=== PATIENT | female | born 1985 | race Hispanic/Latino ===

== ENCOUNTER 2019-07-07 09:05 | Outpatient (CLI) | payer OTHER ==
--- NOTE | 2019-07-07 10:23 | ULT ---
GALLBLADDER ULTRASOUND: HISTORY: Right upper quadrant pain. FINDINGS: The liver, pancreas and right kidney appear normal. There is a 2.9 cm shadowing calculus in the gallb ladder without gallbladder wall thickening or pericholecystic fluid. The common duct measures 5 mm in diameter. No free fluid is seen in the [place] pouch. IMPRESSION: Cholelithiasis. POS: [facility]
== END 2019-07-07 09:06 | disposition home or self-care (01) ==
LOC: BICULT 09:05
PROVIDERS: ATTEND Family Medicine
DX: R10.11 Right upper quadrant pain (principal); R11.10 Vomiting, unspecified; R14.2 Eructation; R14.3 Flatulence; K80.20 Calculus of gallbladder without cholecystitis without obstruction
CPT/HCPCS: 76705

== ENCOUNTER 2019-12-08 08:21 | Day surgery (SDC) | payer OTHER ==
--- NOTE | 2019-10-05 11:41 | HP ---
HISTORY OF PRESENT ILLNESS: Sharmin Varela is a 34-year-old female from [place], [place], incarcerated three years, expected to release January 2020, had symptomatic cholelithiasis. Ultrasound gallbladder 07/07/2019, gallstones, normal bile duct caliber. Labs not provided. ALLERGIES: NONE. SOCIAL HISTORY: Tobacco, none. Previous history of meth use none since incarcerated three years ago. Alcohol, none. MEDICATIONS: None routinely. PAST SURGICAL HISTORY: Tubal ligation, C-sections five. MEDICATIONS: control. REVIEW OF SYSTEMS: Ten-point noncontributory. FAMILY HISTORY: Noncontributory. PHYSICAL EXAMINATION: VITAL SIGNS: Blood pressure 102/70, heart rate 80, temperature 97.6 degrees, 164 pounds, 4 feet 11 inches. HEAD, EARS, EYES, NOSE AND THROAT: Unremarkable. LUNGS: Clear to auscultation. CARDIAC: Regular rate and rhythm without murmur or gallop. ABDOMEN: Soft, nontender, mild tenderness in right upper quadrant. EXTREMITIES: Unremarkable. No ankle edema. ASSESSMENT AND PLAN: Symptomatic cholelithiasis, chronic cholecystitis. We would recommend laparoscopic cholecystectomy, prevent complications of acute cholecystitis, choledocholithiasis and pancreatitis. Risks of infection, bleeding, visceral and biliary injury explained. Plan this is an outpatient. She will need follow up in the office 2 weeks postoperatively. Diet and activity as tolerated postoperatively. We will schedule this whenever approval from the intermediate is given. Job ID: [id number]
[2019-12-07 12:32] VITALS: BMI 33.1
[2019-12-08] MEDS ORDERED: Acetaminophen 500 MG TAB ONE (08:40)
[2019-12-08] MEDS ORDERED: Ketorolac Tromethamine 30 MG/ML VIAL ONE (08:40)
[2019-12-08] MEDS ORDERED: Midazolam HCl 2 mg/2 ml Vial ONE (09:22)
[2019-12-08] MEDS ORDERED: Bupivacaine PF 0.5% 30 ML VIAL ONE (09:32)
[2019-12-08] MEDS ORDERED: Lidocaine 1% w/Epinephrine 1:100K 20 ML VIAL ONE (09:32)
[2019-12-08] MEDS ORDERED: Famotidine/PF 20 mg/2ml Vial ONE (09:33)
[2019-12-08] MEDS ORDERED: Fentanyl 100 MCG/2 ML VIAL ONE ×3 (09:33→11:09)
[2019-12-08] MEDS ORDERED: Meperidine HCl/PF 25 MG/ML VIAL ONE (09:34)
[2019-12-08] MEDS ORDERED: Metoclopramide HCl 10 MG/2 ML VIAL ONE (11:08)
[2019-12-08] MEDS ORDERED: Glycopyrrolate 0.2 MG/ML 5 ML SYRINGE ONE (11:08)
[2019-12-08] MEDS ORDERED: PROPOFOL 200 MG/20 ML VIAL ONE (11:08)
[2019-12-08] MEDS ORDERED: Dexamethasone 20 MG/5 ML VIAL ONE (11:08)
[2019-12-08] MEDS ORDERED: Lidocaine 1% PF 5 ML VIAL ONE (11:08)
[2019-12-08] MEDS ORDERED: Ondansetron PF 4 MG/2 ML Vial ONE (11:08)
[2019-12-08] MEDS ORDERED: Rocuronium Bromide 10 MG/ML (10ML VIAL) ONE (11:08)
[2019-12-08] MEDS ORDERED: HYDROcodone/Acetaminophen 5/325 mg Tablet ONE (11:17)
--- NOTE | 2019-12-08 13:23 | OP ---
DATE OF PROCEDURE: 12/08/2019 PREOPERATIVE DIAGNOSES: Chronic cholecystitis and cholelithiasis. POSTOPERATIVE DIAGNOSES: Chronic cholecystitis and cholelithiasis. PROCEDURE PERFORMED: Laparoscopic video cholecystectomy, very large stone removed. ANESTHESIA: General, local 0.5% Marcaine 30 mL and 1% Xylocaine with epinephrine 20 mL. DESCRIPTION OF PROCEDURE: The patient was taken to the operating room, where under general anesthesia, abdomen was prepared with ChloraPrep and draped in routine fashion. Local anesthetic was infiltrated in the skin and subcutaneous tissue about each port site. An infraumbilical incision was made, and pneumoperitoneum to 15 mmHg was obtained with a Veress needle, replaced with a 5 port, where laparoscope was inserted. Right subxiphoid incision was made, and an 11 port was placed. Right subcostal incisions were made at midclavicular and anterior axillary line, and 5 ports were placed. There were some adhesions in the right upper quadrant. I did not take these down. I was able to work around them. Fundus was grasped and reflected cephalad. Liver appeared to be normal. Infundibulum was grasped and retracted laterally. Cystic artery and duct were dissected free. Critical view was obtained. Cystic artery and duct were doubly clipped proximally and divided. Gallbladder was dissected free from liver bed obtaining good hemostasis prior to division of the final peritoneal attachments. Gallbladder and large stone were removed and submitted to Pathology. Good hemostasis was ensured. Irrigant and pneumoperitoneum were evacuated. All instruments were removed. All skin incisions were approximated with interrupted subdermal 4-0 Monocryl, and [place] glue was applied. Job ID: [id number]
== END 2019-12-08 12:40 | disposition home or self-care (01) ==
LOC: SDC 08:21 → EEVIPCON 08:21 → SDC 12:40
PROVIDERS: ATTEND Specialist
PROC: 0FT44ZZ Resection of Gallbladder, Percutaneous Endoscopic Approach (ICD-10-PCS; principal; 2019-12-08)
DX: K80.10 Calculus of gallbladder with chronic cholecystitis without obstruction (principal); F15.11 Other stimulant abuse, in remission; J45.909 Unspecified asthma, uncomplicated; E66.9 Obesity, unspecified; Z68.33 Body mass index [BMI] 33.0-33.9, adult; Z79.899 Other long term (current) drug therapy
CPT/HCPCS: 88304; J0690; J1100; J1885; J2001; J2175; J2250; J2405; J2704; J2765; J3010; S0020; S0028